=== PATIENT | female | born 1970 | race Caucasian/White ===

== ENCOUNTER → 2019-11-21 | Outpatient (CLI) | payer BC ==
--- NOTE | 2019-11-21 12:22 | RAD ---
INDICATION: Tuberculosis exposure COMPARISON: None. FINDINGS: 2 view of chest obtained. No focal airspace consolidation. Cardiomediastinal contour unremarkable. No acute osseous abnormality. IMPRESSION: * No focal airspace consolidation or edema. Electronically signed by: Sage Dye MD (11/21/2019 12:19 PM) [id number]
== END ==
LOC: PMG 11:05
PROVIDERS: ATTEND Physician Assistant Medical
DX: Z20.1 Contact with and (suspected) exposure to tuberculosis (principal)
CPT/HCPCS: 71046

== ENCOUNTER → 2021-09-28 | Outpatient (CLI) | payer BC, OTHER ==
--- NOTE | 2021-09-28 14:13 | RAD ---
INDICATION: 51 year-old female presents for diagnostic bilateral mammogram x 2 months of left breast pain. No family history of breast cancer indicated. TECHNIQUE: Full field craniocaudal and mediolateral oblique images of both breasts with additional d iagnostic images were obtained using digital technique with tomosynthesis and analyzed with computer -aided detection software. Targeted high resolution sonography of the region of concern was also perf ormed. COMPARISON: Mammogram from 06/02/2015 BREAST COMPOSITION: The breasts are heterogeneously dense, which may obscure small masses. FINDINGS: Mammogram: Right breast: Focal asymmetry at the 12:00 position, middle or posterior depth junction. This area di ssipates on subsequent 2-D spot compression, consistent with parenchymal summation. No suspicious su cifications or architectural distortion. Left breast: Asymmetric density in the lateral, posterior breast appreciated on the CC projection. Th is area dissipates on subsequent 2-D spot compression, consistent with parenchymal summation. No sign ificant masses, suspicious calcifications, or other findings suggestive of malignancy. ULTRASOUND: No sonographic correlate for the patient's clinical complaint. Additional targeted right breast ultra sound reveals scattered and heterogeneously dense areas of normal fibroglandular tissue. Correspondin g with the mammographic findings. Right axillary lymph nodes demonstrated normal morphology. Targeted left breast ultrasound at the 1 to 4:00 position reveals normal fibroglandular tissue with no suspic ious abnormalities. Left axillary lymph nodes demonstrate a normal morphology. IMPRESSION: No evidence of malignancy. RECOMMENDATION: Routine screening mammogram in one year. BI-RADS 1: Negative Electronically signed by: Jh Alberts DO (09/28/2021 2:10 PM) [id number]
== END ==
LOC: RAD 12:07
PROVIDERS: ATTEND Physician Assistant Medical
DX: N64.89 Other specified disorders of breast (principal); N64.4 Mastodynia
CPT/HCPCS: 76642; 77066; G0279; 77062